=== PATIENT | male | born 1980 | race Caucasian/White ===

== ENCOUNTER 2018-11-28 07:47 | Emergency (ER) | payer BC ==
[~2018-11-28] VITALS: Wt 100.0 kg
[2018-11-28] MEDS ORDERED: KETOROLAC 30 MG INJ IV STA (07:55)
[2018-11-28] MEDS ORDERED: SOD CHLORIDE 0.9% 1,000 ML IV STA ×2 (07:55→10:12)
[2018-11-28] MEDS ORDERED: ONDANSETRON 4 MG INJ IV STA ×2 (07:55→10:04)
[2018-11-28] MEDS ORDERED: morphine 4 MG/ML VIAL IV STA (07:55)
[2018-11-28] MEDS ORDERED: HYDROmorphONE 1 MG/ML SYG IV STA (10:04)
--- NOTE | 2018-11-28 10:12 | ERD ---
ER Documentation Chief Complaint Chief Complaint right flank/back pain x 2 days, hx kidney stione HPI This is a 38-year-old male with past medical history of kidney stones. The patient indicates for the past 48 hours has been having severe right flank pain. The pain is 10 out of 10 in intensity. It has progressively worsened and has now radiated to the right lower quadrant. He felt nauseous but has not experienced any emesis. He took Motrin but there is no improvement of the pain. He has had gross hematuria. He denies any frequency or urgency. He said no fevers or shaking or chills. He denies any chest pain or shortness of breath ROS All systems reviewed and are negative except as per history of present illness. Allergies Allergies: Coded Allergies: No Known Allergy (Unverified , 11/28/18) PMhx/Soc Medical and Surgical Hx: pt denies Medical Hx, pt denies Surgical Hx Hx Psychiatric Problems: No Hx Miscellaneous Medical Probl: No Hx Alcohol Use: No Hx Substance Use: No Hx Tobacco Use: No Smoking Status: Never smoker Physical Exam Vitals Vital Signs Date Temp Pulse Resp B/P (MAP) Pulse Ox O2 O2 Flow FiO2 Time Delivery Rate 11/28/18 97.8 102 20 173/107 99 07:48 (129) Physical Exam Constitutional:Well-developed. Well-nourished. Patient appear to be in a significant amount of discomfort secondary to pain HEENT:Normocephalic. Atraumatic.Pupils were equal round reactive to light. Moist mucous membranes.No tonsillar exudates. Neck: No nuchal rigidity. No lymphadenopathy. No posterior cervical spine tenderness or step-offs. Respiratory: Not using accessory muscles of respiration.Lungs were clear to auscultation bilaterally. No rhonchi. No rales. No wheezing. Cardiovascular: Regular rate regular rhythm.No murmurs. No rubs were appreciated.S1, S2 normal. Distal pulses are palpable 2+ bilaterally. GI: Abdomen was soft. Right CVA tenderness with tenderness in the right lower quadrant nonspecific over McBurney's point. Psoas sign negative. Obturator sign negative.. Non Distended. No pulsatile abdominal masses or bruits. No rebound. No guarding. Bowel sounds were present and normal. Muscle skeletal: Full range of motion of both the upper and lower extremities bilaterally.Normal muscle tone.No assymetrical calf tenderness or swelling. Skin: No petechia, no purpura. No lesions on the palms or the soles of the feet. No maculopapular rash. NEURO: Patient was alert, awake, orientated x3.No facial droop. Gait observed and normal with no ataxia.Speech had regular rate and rhythm. No focal neurological deficits. Result Diagram: 11/28/18 0810 11/28/18 0810 Results 24 hrs Laboratory Tests Test 11/28/18 08:10 White Blood Count 11.6 10^3/ul Red Blood Count 5.40 10^6/ul Hemoglobin 14.6 g/dl Hematocrit 43.9 % Mean Corpuscular Volume 81.3 fl Mean Corpuscular Hemoglobin 27.0 pg Mean Corpuscular Hemoglobin Concent 33.3 g/dl Red Cell Distribution Width 12.9 % Platelet Count 337 10^3/UL Mean Platelet Volume 9.0 fl Immature Granulocytes % 0.700 % Neutrophils % 62.0 % Lymphocytes % 29.8 % Monocytes % 5.6 % Eosinophils % 1.1 % Basophils % 0.8 % Nucleated Red Blood Cells % 0.0 /100WBC Immature Granulocytes # 0.080 10^3/ul Neutrophils # 7.2 10^3/ul Lymphocytes # 3.5 10^3/ul Monocytes # 0.7 10^3/ul Eosinophils # 0.1 10^3/ul Basophils # 0.1 10^3/ul Nucleated Red Blood Cells # 0.0 10^3/ul Urine Color YELLOW Urine Clarity SLIGHTLY CLOUDY Urine pH 5.0 Urine Specific [place] 1.026 Urine Ketones NEGATIVE mg/dL Urine Nitrite NEGATIVE mg/dL Urine Bilirubin NEGATIVE mg/dL Urine Urobilinogen NEGATIVE mg/dL Urine Leukocyte Esterase NEGATIVE Daniel/ul Urine Microscopic RBC 126 /HPF Urine Microscopic WBC 3 /HPF Urine Bacteria FEW /HPF Urine Hemoglobin 3+ mg/dL Urine Glucose NEGATIVE mg/dL Urine Total Protein NEGATIVE mg/dl Sodium Level 141 mmol/L Potassium Level 4.2 mmol/L Chloride Level 102 mmol/L Carbon Dioxide Level 26 mmol/L Anion Gap 13 Blood Urea Nitrogen 18 mg/dl Creatinine 1.02 mg/dl Est Glomerular Filtrat Rate mL/min > 60 mL/min Glucose Level 125 mg/dl Calcium Level 9.8 mg/dl Total Bilirubin 0.2 mg/dl Direct Bilirubin 0.00 mg/dl Indirect Bilirubin 0.2 mg/dl Aspartate Amino Transf (AST/SGOT) 35 IU/L Alanine Aminotransferase (ALT/SGPT) 57 IU/L Alkaline Phosphatase 108 IU/L Total Protein 7.8 g/dl Albumin 4.5 g/dl Globulin 3.30 g/dl Albumin/Globulin Ratio 1.36 Amylase Level 69 U/L Lipase 67 U/L Current Medications Medications Dose Sig/Vi Start Time Status Last (Trade) Ordered Route PRN Stop Time Admin Dose Reason Admin Sodium 1,000 ml @ Q1H STAT 11/28/18 DC 11/28/18 Chloride 1,000 mls/hr IV 07:55 08:11 11/28/18 08:54 Morphine 4 mg ONCE STAT 11/28/18 DC 11/28/18 Sulfate IV 07:55 08:11 (morphine) 11/28/18 07:57 Ondansetron 4 mg ONCE STAT 11/28/18 DC 11/28/18 HCl (Zofran IV 07:55 08:11 Inj) 11/28/18 07:57 Ketorolac 30 mg ONCE STAT 11/28/18 DC 11/28/18 Tromethamine IV 07:55 08:11 (Toradol) 11/28/18 07:57 1 mg ONCE STAT 11/28/18 UNV Hydromorphone IV 10:04 HCl 11/28/18 10:05 (Dilaudid) Ondansetron 4 mg ONCE STAT 11/28/18 UNV HCl (Zofran IV 10:04 Inj) 11/28/18 10:05 Tamsulosin 0.4 mg ONCE ONCE 11/28/18 UNV HCl PO 10:30 (Flomax) 11/28/18 10:31 Procedures/MDM The patient presented to the emergency department with back pain. My differential diagnosis included but was not limited to spinal origins of the pa in such as fracture, osteomyelitis, epidural abscess, neoplasm, spondylolishtesis, discogenic, cauda equina syndrome or musculoligamentous. Nonspinal causes such as AAA, upper UTI, renal colic, aortic dissection, abdominal neoplasm were also considered as an etiology into their pain. The patient was immediately given intravenous Toradol morphine and Zofran for analgesic control as well as a liter bolus of normal saline. I obtained a CT scan of the abdomen without contrast that was reviewed by myself the radiologist indicate the following: Mild right hydroureter nephrosis with 3 mm stone orifice ureterovesicular junction. Observation Note: Time: 4 hours Family Hx: No Hypertension Evaluation: Multiple exams showed improving symptoms and no evidence of obstructive uropathy. The patient was able to tolerate oral intake. He was also given Flomax and further doses of analgesic medication. The patient was discharged home in fair condition. They were instructed to return to the emergency department at any time if there was any worsening of their condition. The patient stated they would follow up with their PCP in the next 24-48 hours to initiate a suitable medication regimen under the care of their PCP as well as to allow their PCP to monitor any drug reactions. The patient was discharged home with prescriptions after they gave informed consent to the new medication. They were also fully informed by myself on the adverse effects and adverse drug interactions in order to provide adequate safeguards to prevent possible adverse reactions to medications. Departure Diagnosis: Primary Impression: Nephrolithiasis Condition: Serious KAY KWAN MD Nov 28, 2018 10:12
[2018-11-28] MEDS ORDERED: TAMS-14 PO (10:15)
[2018-11-28] MEDS ORDERED: HYDR-4011 PO (10:15)
[2018-11-28] MEDS ORDERED: IBUP-1544 PO (10:15)
[2018-11-28] MEDS ORDERED: CIPR500T4 PO (10:15)
[2018-11-28] MEDS ORDERED: TAMSULOSIN (SR) 0.4 MG CAP PO ONE (10:30)
[2018-11-28 11:34] VITALS: BP 128/78; PULSE 82; RESP 20
== END 2018-11-28 12:10 | disposition home or self-care (01) ==
LOC: E/R 07:47
DX: N20.0 Calculus of kidney (principal)
CPT/HCPCS: 36415; 74176; 80053; 81001; 82150; 83690; 85025; 96374; 96375; 96376; 99285; J1170; J1885; J2270; J2405; J7030